=== PATIENT | female | born 1945 | race Caucasian/White ===

== ENCOUNTER 2016-08-27 14:59 | Emergency (ER) | payer MEDICARE, OTHER, MEDICAID ==
[~2016-08-27] VITALS: Ht 152.4 cm; Wt 135.0 kg
[~2016-08-27 14:59] MED LIST: ABILIFY2 MG PO; ALTACE10 MG PO; AMBIEN5 MG PO; AMLODIPINE5 MG PO; BUPROPION150 MG PO; C-PAP IN; CARDIZEM CD240 MG PO; CLINDAMYCIN300 M1 PO; CRESTOR10 MG PO; CYMBALTA60 MG PO; DILTIAZEM CD240 MG PO; ELIQUIS5 MG PO; FLUARIX QUADRIV1 IN1 IM; GABAPENTIN300 MG PO; LANTUS100 MG/ML SC; LEVEMIR1000 UNITS SC; LISINOPRIL10 MG PO; LOPID600 MG PO; LORTAB 5/3255 MG PO; MAGNESIUM-OX400 MG PO; MEDDOSEPAK PO; MORPHINE SUL30 M3 PO; MYCOSTATIN100000 MG EX; NEXIUM40 M1 PO; NOVOLOG100 IU/1 M SC; PRILOSEC20 MG PO; RAMIPRIL2.5 MG PO; SORINE120 MG PO; SORINE80 MG PO; SOTALOL HCL80 MG PO; TEMAZEPAM15 MG PO; TORSEMIDE20 M1 PO; TRAMADOL HCL50 MG PO; TRAZODONE50 MG PO; [UNRECOGNIZED DRUG - OTHER] XX
[2016-08-27 15:37] LABS: HEMATOCRIT 47.4 % (37.0-47.0); HEMOGLOBIN 15.7 g/dl (12.0-16.0); IMMATURE GRANULOCYTES 0.5 % (0.0-1.0); MEAN CELL VOLUME 89.1 fL CALC (80.0-100.0); MEAN CORPUSCULAR HGB 29.5 pG CALC (26.0-32.0); MEAN CORPUSCULAR HGB CONC 33.1 g/L CALC (32.0-36.0); NEUT# 10.69 thou/uL (2.00-7.15); RED BLOOD COUNT 5.32 mill/uL (4.20-5.60); RED CELL DISTRI WIDTH 13.9 % (11.5-15.5)
[2016-08-27 15:55] LABS: ALBUMIN 4.2 g/dL (3.2-5.0); ALKALINE PHOSPHATASE 90 u/l (38-126); AMYLASE 35 u/l (30-110); ANION GAP 15 (6-22 (CALC)); BILIRUBIN, TOTAL 0.8 mg/dL (0.0-1.4); BUN 16 mg/dL (8-23); BUN/CREATININE RATIO 22 (12-20 (CALC)); CALCIUM 9.7 mg/dL (8.4-10.2); CARBON DIOXIDE 31 mmol/l (22-30); CHLORIDE 95 mmol/l (95-108); CREATININE 0.7 mg/dL (0.5-1.0); GFR > 60 ML/MIN (>=60 (CALC)); GFR FOR AFR.AMER. > 60 ML/MIN (>=60 (CALC)); GLUCOSE 114 mg/dL (82-115); LIPASE 54 u/l (23-300); POTASSIUM 4.1 mmol/l (3.5-5.1); SGOT/AST 20 u/l (9-36); SGPT/ALT 23 u/l (11-66); SODIUM 137 mmol/l (137-146); TOTAL PROTEIN 8.2 g/dL (6.3-8.2)
[2016-08-27 16:06] LABS: MYOGLOBIN 71 ng/mL (0 - 62)
[2016-08-27] MEDS ORDERED: NOVOLOG100 UNIT/M SC (16:07)
[2016-08-27 20:15] VITALS: BP 147/67
== END 2016-08-27 20:30 | disposition home or self-care (01) ==
LOC: ED 14:59
PROVIDERS: Emergency Medicine
DX: I48.91 Unspecified atrial fibrillation (principal); E11.9 Type 2 diabetes mellitus without complications; I10 Essential (primary) hypertension; J44.9 Chronic obstructive pulmonary disease, unspecified; F31.9 Bipolar disorder, unspecified; H91.90 Unspecified hearing loss, unspecified ear; R07.9 Chest pain, unspecified; R06.02 Shortness of breath

== ENCOUNTER 2017-07-28 12:04 | Emergency (ER) | payer MEDICARE, OTHER, MEDICAID ==
[~2017-07-28] VITALS: Ht 152.4 cm; Wt 150.0 kg
[~2017-07-28 12:04] MED LIST changes: +NOVOLOG100 UNIT/M SC
[2017-07-28 12:34] LABS: HEMATOCRIT 50.8 % (37.0-47.0); HEMOGLOBIN 16.3 g/dl (12.0-16.0); IMMATURE GRANULOCYTES 0.7 % (0.0-1.0); MEAN CELL VOLUME 92.4 fL CALC (80.0-100.0); MEAN CORPUSCULAR HGB 29.6 pG CALC (26.0-32.0); MEAN CORPUSCULAR HGB CONC 32.1 g/L CALC (32.0-36.0); NEUT# 11.62 thou/uL (2.00-7.15); RED BLOOD COUNT 5.5 mill/uL (4.20-5.60); RED CELL DISTRI WIDTH 14.5 % (11.5-15.5)
[2017-07-28 13:42] LABS: ANION GAP 17 (6-22 (CALC)); BUN 16 mg/dL (8-23); BUN/CREATININE RATIO 25 (12-20 (CALC)); CARBON DIOXIDE 28 mmol/l (22-30); CHLORIDE 97 mmol/l (95-108); CREATININE 0.6 mg/dL (0.5-1.0); GFR > 60 ML/MIN (>=60 (CALC)); GFR FOR AFR.AMER. > 60 ML/MIN (>=60 (CALC)); POTASSIUM 4.7 mmol/l (3.5-5.1); SODIUM 138 mmol/l (137-146)
[2017-07-28 13:43] LABS: INFLUENZA A NONE DETECTED (NONE DETECT); INFLUENZA B NONE DETECTED (NONE DETECT)
[2017-07-28 14:56] LABS: URINE BILIRUBIN - DIPSTICK NEGATIVE (NEGATIVE); URINE BLOOD DIPSTICK MODERATE (NEGATIVE); URINE COLOR YELLOW; URINE GLUCOSE - DIPSTICK >=1000 mg/dL (NEGATIVE); URINE KETONE TRACE mg/dL (NEGATIVE); URINE LEUK ESTERASE NEGATIVE (NEGATIVE); URINE NITRITE - DIPSTICK NEGATIVE (Negative); URINE PROTEIN - DIPSTICK >=300 mg/dL (NEG-TRACE); URINE SPECIFIC GRAVITY >=1.030
[2017-07-28 14:58] LABS: URINE CLARITY CLOUDY
[2017-07-28 15:02] LABS: URINE AMORPH SEDIMENT MANY hpf (NONE-FEW); URINE WBC 0-2 WBC/hpf (0-5)
[2017-07-28 15:10] VITALS: BP 145/95
== END 2017-07-28 15:15 | disposition short-term general hospital (02) ==
LOC: ED 12:04
PROVIDERS: Family Medicine
PROC: 0BH17EZ Insertion of Endotracheal Airway into Trachea, Via Natural or Artificial Opening (ICD-10-PCS; principal; 2017-07-28)
PROC: 5A1935Z Respiratory Ventilation, Less than 24 Consecutive Hours (ICD-10-PCS; 2017-07-28)
PROC: 02HV33Z Insertion of Infusion Device into Superior Vena Cava, Percutaneous Approach (ICD-10-PCS; 2017-07-28)
PROC: 0T9B70Z Drainage of Bladder with Drainage Device, Via Natural or Artificial Opening (ICD-10-PCS; 2017-07-28)
DX: I21.4 Non-ST elevation (NSTEMI) myocardial infarction (principal); J44.1 Chronic obstructive pulmonary disease with (acute) exacerbation; I50.9 Heart failure, unspecified; J44.0 Chronic obstructive pulmonary disease with (acute) lower respiratory infection; J18.9 Pneumonia, unspecified organism; Y95 Nosocomial condition